=== PATIENT | female | born 2000 | race African-American/Black ===

== ENCOUNTER 2023-09-13 12:17 | Emergency (ER) | payer BC, SELFPAY ==
[2023-09-13 12:18] VITALS: BP 118/72
[2023-09-13 12:34] VITALS: BMI 21.6
[2023-09-13 13:30] VITALS: BMI 21.6
[2023-09-13] MEDS: NSS 1000 IV (13:40)
[2023-09-13] MEDS: ZOFRAN 4 MG IV (13:40)
[2023-09-13 13:56] LABS: % Basophils 0.1 % (0-2); % Immature Granulocytes 0.4 % (0-0.5); % Lymphocytes 4.4 % (20.5-51.1); % Monocytes 9.2 % (1.7-9.3); % Neutrophils 85.9 % (42.2-75.2); Absolute Lymphocytes 0.5 10^3/uL (1.2-3.4); Absolute Neutrophils 9.7 10^3/uL (1.4-6.5); Hematocrit 38.7 % (37.0-47.0); Hemoglobin 13.4 g/dL (12.0-16.0); Mean Corp Hgb Conc. 34.6 g/dL (33.0-37.0); Mean Corpuscular Hgb 30.5 pg (27.0-31.0); Mean Corpuscular Volume 88.2 fL (81.0-99.0); Mean Platelet Volume 10.4 fL (7.4-10.4); Nucleated Red Blood Cells % 0 %; Platelet Count 246 10^3/uL (130-400); Red Blood Cell Count 4.39 10^6/uL (4.20-5.40); White Blood Cell Count 11.3 10^3/uL (4.8-10.8)
[2023-09-13 14:06] LABS: ALT (SGPT) 16 U/L (0-35); AST (SGOT) 25 U/L (14-36); Albumin 4.2 g/dl (3.5-5.0); Alkaline Phosphatase 56 U/L (38-126); Blood Urea Nitrogen 14 mg/dl (7-17); Calcium 9.5 mg/dl (8.4-10.2); Carbon Dioxide 23 mmol/L (22-30); Chloride 101 mmol/L (98-107); Estimated Creatinine Clearance > 125 ml/min; Glucose 96 mg/dl (70-99); Potassium 3.8 mmol/L (3.5-5.1); Sodium 135 mmol/L (135-145); Total Bilirubin 0.7 mg/dl (0.2-1.3); Total Protein 7.1 g/dl (6.3-8.2); eGFR > 60.00
[2023-09-13 14:07] LABS: COVID-19 Antigen Negative (Negative)
[2023-09-13 14:12] LABS: HCG, Serum Qualitative Screen Negative
[2023-09-13 14:34] LABS: Lipase 36 U/L (23-300)
[2023-09-13 14:56] VITALS: BP 147/83
--- NOTE | 2023-09-13 18:19 | ED.GENMED ---
History of Present Illness
General
Chief Complaint: Abdominal Pain
Source: patient
Exam Limitations: none
Time Seen by Provider: 09/13/23 12:29
Nursing documentation reviewed up to this point in time: agreed with
Travel History
Have you had any contact with someone who has COVID-19?: No
Do you have any symptoms of coronavirus? Fever > 100 degrees, chills, cough, shortness of breath, sore throat, loss of taste or smell, muscle aches, or headache?: Yes
Symptoms:: cough
History of Present Illness
History of Present Illness:
23-year-old female with no medical problems presents with nausea vomiting and diarrhea starting last night, vomited about 10 times and had 3 episodes of diarrhea. She has had a cough which is mostly dry but occasionally productive with yellowish
sputum for the last week. She has not had any fever, mild sore throat but no other significant cold symptoms. She does not have any chest pain or shortness of breath. She did not get tested for flu or COVID. Patient last vomited prior to arrival
but is feeling nauseous.
Past History
Past History
ED Past Medical History: None
ED Past Surgical History: None
Social History
Tobacco: Non-smoker
Review of Systems
Review of Systems
Allergies reviewed?: Yes
All Other Systems: Not applicable
Phy Exam
Physical Exam
Physical Exam:
GENERAL: Alert , in no apparent distress
EYE: pupils equal and reactive
NECK: Supple
ENT: o/p clr, mmm.
CARDIAC: Regular rate and rhythm .
LUNGS: Clear breath sounds bilaterally, no acute respiratory distress, no wheezes/rales/rhonchi frequent cough
ABDOMEN: Soft, without focal tenderness, no r/g, no cvat, normal bowel sounds
NEUROLOGICAL: Alert and oriented, no focal neuro deficits
SKIN: Warm and dry, skin intact.
MUSCULOSKELETAL: No edema, well perfused. neg mayo's sign
PSYCH: Normal and appropriate interaction.
Course
Orders/Labs/Results
Orders:
Orders
09/13/23 12:51
0.9% Sodium Chloride 1000 ml [Nss] 1,000 ml IV BOLUS
Test Result ONCE
09/13/23 12:52
Ondansetron Injectable [Zofran] 4 mg IV NOW STA
09/13/23 13:38
Complete Blood Count/With Diff Urgent
Comprehensive Metabolic Panel Urgent
HCG, Serum Qualitative Screen Urgent
Lipase Urgent
09/13/23 13:42
COVID-19 Antigen Urgent
Source: Nasal Swab
Influenza A+B Rapid Molecular Urgent
JULIANN Source: Nasal Swab
Specimen Description:
Abnormal Lab Results
09/13/23
13:38
WBC 11.3 H 10^3/uL
(4.8-10.8)
Absolute Neuts (auto) 9.7 H 10^3/uL
(1.4-6.5)
Absolute Lymphs (auto) 0.5 L 10^3/uL
(1.2-3.4)
Absolute Monos (auto) 1.0 H 10^3/uL
(0.1-0.6)
Neutrophils % 85.9 H %
(42.2-75.2)
Lymphocytes % 4.4 L %
(20.5-51.1)
09/13/23 13:38
09/13/23 13:38
Vital Signs
Initial and Last Documented VS:
Initial Vital Signs
Temp Pulse Resp BP Pulse Ox
98.9 F 80 16 118/72 98
09/13/23 12:18 09/13/23 12:18 09/13/23 12:18 09/13/23 12:18 09/13/23 12:18
Last Documented Vital Signs
Temp Pulse Resp BP Pulse Ox
98.9 F 78 21 147/83 95
09/13/23 12:18 09/13/23 14:56 09/13/23 14:56 09/13/23 14:56 09/13/23 14:56
MDM/Problems Addressed
Differential Diagnosis Includes:
Gastroenteritis, pneumonia, viral URI
MDM/Problems Addressed:
23-year-old healthy female presents with nausea vomiting and diarrhea since last night in the setting of a recent URI with a cough for the last week. She has not had any fever. She is bringing up some sputum. On exam she looks nontoxic, she is
afebrile, has n of focal abdominal tenderness
She does have clear lungs however she has been coughing. I recommended a chest x-ray to rule out pneumonia but the mom and the patient declined.
Patient's white count is minimally elevated with a slight left shift but otherwise her labs were normal. She is not having any urinary symptoms and did not provide a urine sample but her hCG was negative. She felt better after Zofran and fluids
and was given prescription for Zofran ODT No. 3 as needed
And recommend that she return if she gets worse
*Critical Care Note
Total Time (30-74mins, 75-104mins- exclusive of procedures): Not Applicable
ED Attending Note
-
Portions of this chart may have been created with voice recognition software.� Occasional wrong word or��sound alike� substitutions may have occurred due to the inherent limitations of voice recognition software.
Discharge Plan
Departure
Patient Disposition: Home (Routine Discharge)
Date of Disposition: 09/13/23
Time of Disposition: 14:49
Patient with high blood pressure during this ER visit?: No
Condition: Fair
Discharge Problem:
Upper respiratory infection, Vomiting and diarrhea
Instructions: Viral Upper Respiratory Infection, Adult (DC), Nausea and Vomiting, Adult (DC)
Prescriptions:
New
ondansetron 4 mg tablet,disintegrating
4 mg PO Q8HPRN PRN (Reason: nausea and vomiting) 1 Days Qty: 3 0RF
Referrals:
Micha Gibson DO [Family Provider] - Follow up in 5-7 days
Stand Alone Forms: Return to Work
Activity Restrictions/Additional Instructions:
Your blood work was reassuring. You declined a chest x-ray but your lungs sounded clear. Your electrolytes were okay. You likely have a virus causing your GI symptoms. We tested negative for flu and COVID. You can use Zofran every 8 hours as
needed for nausea and vomiting. Start with clear liquids and advance your diet as tolerated. If you vomit then go back to ice chips until you tolerate sips of clears etc.
Return for worsening symptoms like severe abdominal pain, high fever, dehydration, worsening cough or any concerns
Interventions
Interventions:
*Risk Screen - Suicide Last Done: 09/13/23 12:29
*General Assessment Last Done: 09/13/23 12:29
*Neglect/Abuse Screening Last Done: 09/13/23 12:29
ED- Fall Risk Assessment Last Done: 09/13/23 15:23
*ED COVID-19 Vaccine History Last Done: 09/13/23 12:29
*Nursing Disposition Last Done: 09/13/23 15:23
SU-Kfxqsg-Lczcoousdo Assessment Last Done: 09/13/23 12:29
Discharge Date and Time
Discharge Date/Time: 09/13/23 15:24
== END 2023-09-13 15:24 | disposition home or self-care (01) ==
LOC: EMR 12:17
PROVIDERS: Physician Assistant; EMERGENCY PHYSICIAN Student in an Organized Health Care Education/Training Program; FAMILY PHYSICIAN Family Medicine
DX: J06.9 Acute upper respiratory infection, unspecified (principal); R19.7 Diarrhea, unspecified; R11.2 Nausea with vomiting, unspecified
CPT/HCPCS: 99284; 96374; 96361; 80053; 83690; 84703; 85025; 87502; 87811